=== PATIENT | female | born 1990 | race African-American/Black ===

== ENCOUNTER 2018-06-02 11:04 | Emergency (ER) | payer MEDICAID ==
[2018-06-02 11:15] VITALS: BP 114/75
--- NOTE | 2018-06-02 11:23 | UC ---
Abdominal Pain Female HPI - HPI Summary HPI Summary: 27 yo female presents with abdominal pain. She tells me that on 05/30 she developed nausea and generalized abdominal cramping. On 05/31 she was unable to tolerate food and was vomiting after eating. This has persisted through today, but now she is also unable to tolerate po liquids without vomiting and her abdominal cramping has gotten significantly worse. She also has not had a BM since 05/30. She has taken senna with no relief. She reports a hx of two c- sections in the past, but no other abdominal surgeries. She denies fever, chills , SOB, chest pain, dysuria, vaginal discharge/bleeding. Her LMP was 2 weeks ago and she is on the nexplanon for control. - History of Current Complaint Chief Complaint: UCAbdominalPain Stated Complaint: CONSTIPATION, VOMITTING Time Seen by Provider: 06/02/18 11:22 Hx Obtained From: Patient Hx Last Menstrual Period: 05/17/18 Onset/Duration: Gradual Onset Severity Initially: Moderate Severity Currently: Severe Pain Intensity: 10 Pain Scale Used: 0-10 Numeric Location: Diffuse Radiates: Yes Radiates to: Back Character: Aching, Cramping Allergies/Adverse Reactions: Allergies Allergy/AdvReac Type Severity Reaction Status Date / Time morphine Allergy Sneezing Verified 06/02/18 11:15 Penicillins Allergy Rash Verified 06/02/18 11:15 Home Medications: Home Medications NK [No Home Medications Reported] 06/02/18 [History Confirmed 06/02/18] PMH/Surg Hx/FS Hx/Imm Hx - Additional Past Medical History Additional PMH: None - Surgical History Surgical History: Yes Surgery Procedure, Year, and Place: c/sec x 2 - Family History Known Family History: Positive: None - Social History Occupation: Employed Full-time Lives: With Family Alcohol Use: None Substance Use Type: None Smoking Status (MU): Never Smoked Tobacco Review of Systems All Other Systems Reviewed And Are Negative: Yes Constitutional: Positive: Negative Skin: Positive: Negative Eyes: Positive: Negative ENT: Positive: Negative Respiratory: Positive: Negative Cardiovascular: Positive: Negative Gastrointestinal: Positive: Abdominal Pain, Vomiting, Nausea Genitourinary: Positive: Negative Neurovascular: Positive: Negative Neurological: Positive: Negative Psychological: Positive: Negative Physical Exam - Summary Physical Exam Summary: GENERAL: NAD. WDWN. No pain distress. SKIN: No rashes, sores, lesions, or open wounds. NECK: Supple. Nontender. No lymphadenopathy. CHEST: CTAB. No r/r/w. No accessory muscle use. Breathing comfortably and in no distress. CV: RRR. Without m/r/g. Pulses intact. Cap refill <2seconds ABDOMEN: Soft. RLQ TTP. No distention or guarding. No CVA tenderness. Bowel sounds present NEURO: Alert. PSYCH: Age appropriate behavior. Triage Information Reviewed: Yes Vital Signs: Initial Vital Signs Temp 97.6 F 06/02/18 11:10 Pulse 87 06/02/18 11:10 Resp 17 06/02/18 11:10 BP 114/75 06/02/18 11:10 Pulse Ox 100 06/02/18 11:10 Vital Signs Reviewed: Yes Abd Pain Female Course/Dx - Course Course Of Treatment: Given her inability to tolerate po food/liquids, increasing pain, and RLQ TTP - I advised pt to be further evaluated in the ED as I am concerned this could represent appendicitis or a bowel obstruction. She was agreeable to this and declined ambulance transfer. She was given 4mg Zofran SL in the clinic and her friend will drive her to the ED. - Differential Dx/Diagnosis Provider Diagnosis: Abdominal pain, RLQ, Vomiting, Nausea Discharge - Sign-Out/Discharge Documenting (check all that apply): Patient Departure All imaging exams completed and their final reports reviewed: No Studies - Discharge Plan Condition: Stable Disposition: HOME-RECOMMEND TO ED Referrals: No Primary Care Phys,NOPCP [Primary Care Provider] - Additional Instructions: Please go to the ER for further evaluation of your RLQ pain, vomiting, and constipation - Billing Disposition and Condition Condition: STABLE Disposition: Home-Recommend to ED
[2018-06-02] MEDS ORDERED: Ondansetron ODT TAB* 4 MG SL ONE (11:31)
== END 2018-06-02 11:43 | disposition home health service (06) ==
LOC: UCEAST 11:04
DX: R10.31 Right lower quadrant pain (principal); R11.2 Nausea with vomiting, unspecified; Z88.5 Allergy status to narcotic agent; Z88.0 Allergy status to penicillin
CPT/HCPCS: 99202; A9270-GY; G0463